=== PATIENT | male | born 1955 | race Caucasian/White ===

== ENCOUNTER 2020-03-16 18:16 | Emergency (ER) | payer BC ==
[~2020-03-16] VITALS: Ht 177.8 cm; Wt 127.0 kg
[2020-03-16 18:27] VITALS: Ht 177.8 cm; Wt 127.0 kg
[2020-03-16 21:22] LABS: PLATELET COUNT 322 x10^3mcL (130-400); RED CELL DISTRIBUTION WIDTH 14.1 % (11.5-14.5)
[2020-03-16 21:25] LABS: CALCIUM 8.9 mg/dL (8.5-10.1); CHLORIDE SERUM 100 mmol/L (98-107); CREATININE SERUM 0.9 mg/dL (0.7-1.3); GFR1 > 60 mL/min; GLUCOSE SERUM 154 mg/dL (74-106); POTASSIUM SERUM 3.7 mmol/L (3.5-5.1); SODIUM SERUM 136 mmol/L (136-145)
[2020-03-16 21:31] LABS: ALKALINE PHOSPHATASE 82 U/L (46-116); ALT/SGPT 29 U/L (16-63); AST/SGOT 25 U/L (15-37); BILIRUBIN TOTAL 0.5 mg/dL (0.20-1.00)
[2020-03-16 21:40] LABS: BAND NEUTROPHIL 7 % (0-10); BASOPHIL 0 % (0-2); MONOCYTE 3 % (0-7); PLATELET MORPHOLOGY PLATELETS NORMAL; SEGMENTED NEUTROPHILS 82 % (37-75); rbc morphology (normal/abnorm) NORMAL (NORMAL)
[2020-03-17 00:27] VITALS: BP 184/106
== END 2020-03-17 00:27 | disposition home or self-care (01) ==
LOC: ED 18:16 → EDBD 18:16 → ED 03-17 00:27
PROVIDERS: Emergency Medicine
DX: S30.811A Abrasion of abdominal wall, initial encounter (principal); R31.9 Hematuria, unspecified; E03.9 Hypothyroidism, unspecified; I10 Essential (primary) hypertension; X58.XXXA Exposure to other specified factors, initial encounter; Y93.89 Activity, other specified; Y92.89 Other specified places as the place of occurrence of the external cause; Y99.8 Other external cause status
CPT/HCPCS: J2405; J3010; J3490; Q0092; Q9967